=== PATIENT | female | born 1965 | race African-American/Black ===

== ENCOUNTER → 2018-03-05 07:18 | Outpatient (CLI) | payer MEDICARE ==
[2011-09-25 10:58] VITALS: BMI 29.0
--- NOTE | ~2018-03-05 | HEMODYNAMI ---
PATIENT:GIRISH SORIA MEDICAL RECORD: [id number] : 63 LOCATION:[facility] ADMISSION DATE: 03/05/18 Generatedon:03/05/20189:16 Patient name: GIRISH SORIA Patient #: [id number] SSN: : 1965 Date of study: 03/05/2018 Page: Of Hemodynamic Procedure Report Patient Data Patient Demographics Procedure consent was obtained First Name: GIRISH Gender: Female Last Name: ESTELLA : 1965 Middle Initial: M Age: 52 year(s) Patient #: [id number] Race: Black Additional ID: [id number] Contact details [address]: [address] [place] [address] State: [place] City: [place] Zip code: [address] Admission Admission Data Admission Date: 03/05/2018 Admission Time: 7:18 Procedure Procedure Types Cath Procedure Peripheral Cath Diagnostic Procedure Cath Peripheral Gastric G Tube Replacement Procedure Description Procedure Date Procedure Date: 03/05/2018 Procedure Start Time: 8:49 Procedure Staff Name Function Katherine Clayton RT Senior Network Security Architect Katherine Clayton RT Monitor Fredy Griggs MD Performing Physician Lori Martinez MD Ordering physician Lori Martinez MD Interpreting lab animal technologist Pricilla Caban RT Scrub Juliane Rider RN Nurse Procedure Data Cath Procedure Fluoroscopy Diagnostic fluoroscopy Total fluoroscopy Time: 0 time: 0 min min Diagnostic fluoroscopy Total fluoroscopy dose: 16 dose: 16 mGy mGy Contrast Material Contrast Material Type Amount (ml) Isovue 300 14 Hemodynamics Rest Pre Cath Intra NCS Post Cath Procedure Log Time Note 8:34:36 Time tracking: Regular hours (M-F 7:00 - 5:00) 8:34:46 Plan of Care:Hemodynamics will remain stable., Cardiac rhythm will remain stable., Comfort level will be maintained., Respiratory function will remain adequate., Patient/ family verbilizes understanding of procedure., Procedure tolerated without complication., Recovers from procedure without complications.. 8:34:58 Patient received from Other to IR Alert and oriented. Tansferred to table in Supine position. 8:35:05 Signed procedure consent form obtained from guardian. 8:35:08 8:35:36 Left abdomen area was prepped with chlora-prep and draped in sterile fashion 8:35:42 8:35:49 Use device set IR Diagnostic 8:35:52 Sterile Angiographic Pack opened to sterile field. 8:35:53 Bag Decanter (2002) opened to sterile field. 8:36:19 GASTROSTOMY 18Fr Tri-Funnel Tube ([id number]) opened to sterile field. 8:48:14 Physician arrived 8:49:15 Final Timeout: patient, procedure, and site verified with staff and physician. All members of the team are in agreement. 8:49:15 --------ALL STOP TIME OUT------ 8:49:45 Procedure started. 8:49:46 Full Disclosure recording started 8:59:35 AMPLATZ Super stiff 180cm wire ([id number]) opened to sterile field. 9:01:02 DILATOR, VESSEL 9/20 opened to sterile field. 9:01:56 DILATOR, VESSEL 7/20 opened to sterile field. 9:12:06 Procedure ended.(Physican Out) 9:12:10 Contrast amount:Isovue 300 14ml. 9:12:17 Fluoroscopy time 00.00 minutes. 9:12:21 Fluoroscopy dose: 16 mGy 9:12:21 Flurop Dose total: 16 9:12:44 Procedure and supply charges have been captured, reviewed, submitted and are correct. 9:13:28 Full Disclosure recording stopped Device Usage Item Name Manufacture Quantity Catalog Hospital Part Current Minimal Lot# / Number Charge Number Stock Stock Serial# Code Sterile Cardinal 1 [id number] 5 Angiographic Health Pack Bag Decanter Micro[employer] 1 [id number] 5 () [employer] GASTROSTOMY Bard 1 [id number] 706776 952575 5 20Fr Tri-Funnel Tube ([id number]) AMPLATZ [place] 1 [id number] 438757 773861 5 Super stiff Scientific 180cm wire ([id number]) DILATOR, [employer] 1 [id number] 09353 [id number] 5 [id number] VESSEL 07/18 DILATOR, [employer] 1 [id number] 37759 [id number] 5 [id number] VESSEL 05/17 Signature Audit [place] Stage Time Signature Unsigned Intra-Procedure 03/05/2018 Katherine Clayton RT(R) 9:13:19 AM RT(R) 03/05/2018 9:14:44 AM Intra-Procedure 03/05/2018 Katherine Clayton 9:16:24 AM RT(R) Signatures Monitor : Katherine Clayton RT Signature : Date : Time : [place] [id number] [facility] [place] [address]
== END | disposition home or self-care (01) ==
LOC: D.SP 07:18 → D.RAD 10:00
DX: R13.10 Dysphagia, unspecified (principal)